=== PATIENT | female | born 2000 | race Caucasian/White ===

== ENCOUNTER 2023-01-15 08:39 | Emergency (ER) | payer MEDICAID ==
[~2023-01-15] VITALS: Ht 154.9 cm; Wt 46.0 kg
[2023-01-15 08:42] VITALS: BP 125/79; PULSE 102; RESP 16; TEMP 98.3; O2SAT 95
== END 2023-01-15 10:11 | disposition left against medical advice (07) ==
LOC: ER 08:58
DX: F41.9 Anxiety disorder, unspecified (principal); F14.10 Cocaine abuse, uncomplicated
CPT/HCPCS: 99283